=== PATIENT | female | born 1960 | race Caucasian/White ===

== ENCOUNTER 2022-03-24 07:11 | Day surgery (SDC) | payer OTHER ==
[2022-03-22 10:34] VITALS: BMI 40.2
[2022-03-24 07:31] VITALS: RESP 18
[2022-03-24] MEDS ORDERED: LIDOCAINE HCL/PF 2% SDV 5ML VIAL ONE (07:58)
[2022-03-24] MEDS ORDERED: PROPOFOL 120 ML ONE (07:58)
[2022-03-24 09:08] VITALS: TEMP 98
[2022-03-24 09:12] VITALS: BP 129/78; PULSE 78
== END 2022-03-24 09:35 | disposition home or self-care (01) ==
LOC: FASU-ENDO 07:11
PROVIDERS: ATTEND Internal Medicine Gastroenterology
PROC: 0DBH8ZX Excision of Cecum, Via Natural or Artificial Opening Endoscopic, Diagnostic (ICD-10-PCS; principal; 2022-03-24 08:33)
DX: Z12.11 Encounter for screening for malignant neoplasm of colon (principal); D12.0 Benign neoplasm of cecum; K57.30 Diverticulosis of large intestine without perforation or abscess without bleeding; Z86.010 Personal history of colon polyps
CPT/HCPCS: 88305-TC